=== PATIENT | female | born 1960 | race Two or more races ===

== ENCOUNTER → 2023-03-02 | Outpatient (CLI) | payer OTHER ==
--- NOTE | 2023-03-03 17:19 | MM ---
Reason for Exam: Screening (asymptomatic). Last screening mammogram was performed 12 month(s) ago. Patient History: Menarche at age 11. First Full-Term at age 32. Late child-bearing (after 30). Hysterectomy at age 44. Postmenopausal. Estrogen for 1 month. Mother had breast cancer. Risk Values: Erika 5 year model risk: 3.2%. NCI Lifetime model risk: 15.6%. Prior Study Comparison: 02/19/2021 Bilateral Screening Mammogram, Unknown. 02/28/2022 Bilateral Screening Mammogram, Unknown. Tissue Density: The breast tissue is heterogeneously dense. This may lower the sensitivity of mammography. Findings: Analyzed By CAD. Increasing upper outer quadrant left breast nodularity at an anterior depth. Additional oval area of nodularity appears new or increased as well more centrally outer aspect of the left breast. Further evaluation is recommended. Otherwise, no significant change. Overall Assessment: Incomplete: need additional imaging evaluation, BI-RAD 0 Management: Special View Mammogram of the left breast. Diagnostic Breast Ultrasound of the left breast. Additional views left breast to include spot 3-D CC (2 sites), spot 3-D MLO (2 sites), and 3-D ML views. Subsequent left breast ultrasound. [facility] will attempt to contact patient to return for supplemental views and ultrasound if indicated. Electronically signed and approved by: Zev Arreguin M.D. Radiologist
== END | disposition home or self-care (01) ==
LOC: RADMAMWWP 14:22
PROVIDERS: ATTEND Internal Medicine Geriatric Medicine
DX: Z12.31 Encounter for screening mammogram for malignant neoplasm of breast (principal); Z78.0 Asymptomatic menopausal state; Z80.3 Family history of malignant neoplasm of breast
CPT/HCPCS: 77063; 77067

== ENCOUNTER → 2023-03-17 | Outpatient (CLI) | payer OTHER ==
--- NOTE | 2023-03-17 10:45 | MM ---
Reason for Exam: Additional evaluation requested from abnormal screening. Last screening mammogram was performed less than 1 month ago. Patient History: Menarche at age 11. First Full-Term at age 32. Late child-bearing (after 30). Hysterectomy at age 44. Postmenopausal. Estrogen for 1 month. Mother had breast cancer. Risk Values: Erika 5 year model risk: 3.2%. NCI Lifetime model risk: 15.6%. Prior Study Comparison: 02/19/2021 Bilateral Screening Mammogram, Unknown. 02/28/2022 Bilateral Screening Mammogram, Unknown. 03/02/2023 Bilateral MG 3D screening mammo w/cad, [facility]. Tissue Density: Left: The breast tissue is heterogeneously dense. This may lower the sensitivity of mammography. Findings: Analyzed By CAD. Multiple focal asymmetries are visualized in the left breast the upper outer quadrant measuring 9 mm located 4 cm nipple and measuring 8 mm 4.5 cm nipple on MLO view. These are anterior and middle depths. Overall Assessment: Incomplete: need additional imaging evaluation, BI-RAD 0 Management: Diagnostic Breast Ultrasound of the left breast. Results were given to the patient verbally at the time of exam. Patient should continue monthly self-breast exams. A clinical breast exam by your physician is recommended on an annual basis. This exam should not preclude additional follow-up of suspicious palpable abnormalities. Note on Erika scores and lifetime risk: 1. A Erika score greater than 3% is considered moderate risk. If this is the case, consider specialist referral to assess eligibility for a risk reducing agent. 2. If overall lifetime risk for the development of breast cancer is 20% or higher, the patient may qualify for future screening with alternating mammogram and breast MRI. Electronically signed and approved by: Rupert Corbett DO
--- NOTE | 2023-03-17 11:26 | USB ---
Reason for Exam: Additional evaluation requested from abnormal screening. Patient History: Menarche at age 11. First Full-Term at age 32. Late child-bearing (after 30). Hysterectomy at age 44. Postmenopausal. Estrogen for 1 month. Mother had breast cancer. Risk Values: Erika 5 year model risk: 3.2%. NCI Lifetime model risk: 15.6%. Technique: Method: Targeted. Prior Study Comparison: 02/19/2021 Bilateral Screening Mammogram, Unknown. 02/28/2022 Bilateral Screening Mammogram, Unknown. 03/02/2023 Bilateral MG 3D screening mammo w/cad, [facility]. Findings: The upper outer quadrant of the left breast, the axilla of the left breast and the retroareolar of the left breast were scanned. Imaged: Ultrasound imaging of: All 4 quadrants, the retroareolar region and axilla. Multiple cysts are identified some with internal debris. 12:00 2 cm the nipple measuring 5 x 3 x 5 mm. 12:00 6 cm nipple measuring 8 x 6 x 8 mm Cluster of cysts at 1:00 6 cm nipple measuring 9 x 10 x 4 mm. Overall Assessment: Probably benign, BI-RAD 3 Management: Diagnostic Breast Ultrasound of the left breast in 6 months. Short-term follow-up for simple and slightly complex appearing cyst. A clinical breast exam by your physician is recommended on an annual basis and results should be correlated with mammographic findings. This exam should not preclude additional follow-up of suspicious palpable abnormalities. Results were given to the patient verbally at the time of exam. Electronically signed and approved by: Rupert Corbett DO
== END | disposition home or self-care (01) ==
LOC: RADMAMWWP 09:50
PROVIDERS: ATTEND Internal Medicine Geriatric Medicine
DX: R92.8 Other abnormal and inconclusive findings on diagnostic imaging of breast (principal); Z78.0 Asymptomatic menopausal state; Z80.3 Family history of malignant neoplasm of breast
CPT/HCPCS: 77065; 76642; G0279; 77061

== ENCOUNTER → 2023-09-25 | Outpatient (CLI) | payer OTHER ==
--- NOTE | 2023-09-25 10:10 | USB ---
Reason for Exam: Follow-up at short interval from prior study. Patient History: Menarche at age 11. First Full-Term at age 32. Late child-bearing (after 30). Hysterectomy at age 44. Postmenopausal. Estrogen for 1 month. Mother had breast cancer. Risk Values: Erika 5 year model risk: 3.3%. NCI Lifetime model risk: 15.1%. Prior Study Comparison: 02/28/2022 Bilateral Screening Mammogram, Unknown. 03/02/2023 Bilateral MG 3D screening mammo w/cad, [facility]. 03/17/2023 Left MG 3D work up w/cad LT, [facility]. 03/17/2023 Left US breast workup limited , [facility]. Findings: The upper outer quadrant of the left breast, the axilla of the left breast and the retroareolar of the left breast were scanned. There are multiple small cysts present within the [id number] left breast. At the left breasts 12:00 position 6 cm from nipple some minimal internal echoes may be present within the cyst.. Overall Assessment: Probably benign, BI-RAD 3 Management: Diagnostic Breast Ultrasound of the left breast in 6 months. Screening Mammogram of both breasts in 6 months. A clinical breast exam by your physician is recommended on an annual basis and results should be correlated with mammographic findings. This exam should not preclude additional follow-up of suspicious palpable abnormalities. Results were given to the patient verbally at the time of exam. Electronically signed and approved by: Michael Brannon D.O. Radiologis
== END | disposition home or self-care (01) ==
LOC: RADUSWWP 09:33
PROVIDERS: ATTEND Internal Medicine Geriatric Medicine
DX: R92.2 Inconclusive mammogram (principal); Z80.3 Family history of malignant neoplasm of breast; Z78.0 Asymptomatic menopausal state